=== PATIENT | male | born 1985 | race Two or more races ===

== ENCOUNTER 2024-05-05 04:22 | Inpatient (IN) | payer BC, OTHER ==
[~2024-05-05] VITALS: Ht 182.9 cm; Wt 90.9 kg
[2024-05-05] VITALS (8 sets, daily range): BP systolic 102–126; BP diastolic 78–89; PULSE 44–79; RESP 16–19; TEMP 97.6–98.4; O2SAT 95–99
[2024-05-05 04:53] LABS: Basophils # (auto) 0.1 10 ^3/uL (0-0.2); Basophils % (auto) 1.2 % (0.0-2.0); Eosinophils # (auto) 0.2 10 ^3/uL (0-0.8); Eosinophils % (auto) 3.6 % (0.0-7.0); Hematocrit 47.9 % (41.0-53.0); Hemoglobin 16.6 g/dL (13.5-17.5); Lymphocytes # (auto) 1.5 10 ^3/uL (0.4-5.4); Lymphocytes % (auto) 29.3 % (10.0-50.0); Mean Corpuscular Hemoglobin 31.6 pg (28.0-32.0); Mean Corpuscular Hgb Conc. 34.6 g/dL (32.0-36.0); Mean Corpuscular Volume 91.3 fL (80.0-100.0); Monocytes # (auto) 0.6 10 ^3/uL (0-1.3); Monocytes % (auto) 11.2 % (0.0-12.0); Neutrophils # (auto) 2.8 10 ^3/uL (1.6-8.6); Neutrophils % (auto) 54.7 % (37.0-80.0); Nucleated Red Blood Cells % 0.1 %; Platelet Count (auto) 254 10^3/uL (140-450); Red Blood Cells 5.25 10^6/uL (4.5-5.90); Red Cell Distribution Width 12.9 % (11.8-14.3)
[2024-05-05 04:59] LABS: INR 1.11 (0.9-1.15); Partial Thromboplastin Time 29.6 SEC (24.5-34.5); Prothrombin Time 11.7 sec (9.3-11.8)
[2024-05-05 05:02] LABS: Alanine Aminotransferase 28 U/L (7-40); Albumin 4.9 g/dL (3.2-4.8); Alkaline Phosphatase 104 U/L (46-116); Anion Gap 4 (5-15); Aspartate Aminotransferase 26 U/L (13-40); BUN/Creatinine Ratio 19.4 (10.0-20.0); Bilirubin, Total 0.5 mg/dL (0.2-1.0); Blood Urea Nitrogen 18 mg/dL (9-23); Carbon Dioxide 23 mmol/L (20-31); Chloride 111 mmol/L (98-107); Glucose 93 mg/dL (74-106); Potassium 4.1 mmol/L (3.5-5.1); Sodium 138 mmol/L (136-145); Total Protein 7.4 g/dL (5.7-8.2)
[2024-05-05] MEDS: LORazepam 2MG/ML-1ML VIAL IV ONE (07:24)
[2024-05-05] MEDS: ASPirin 325 MG TAB PO ONE (07:30)
[2024-05-05] MEDS: NITROGLYCERIN 0.4 MG SL TAB SL ONE (07:30)
[2024-05-05] MEDS ORDERED: MORPHINE SULFATE INJ 2 MG/ml SYRG IV PRN ×2 (10:30)
[2024-05-05] MEDS ORDERED: TEMAZEPAM 15 MG CAP PO PRN (10:30)
[2024-05-05] MEDS ORDERED: ONDANSETRON HCL 4 MG/2 ML VIAL IV PRN (10:30)
[2024-05-05] MEDS ORDERED: NITROGLYCERIN 0.4 MG SL TAB SL PRN ×2 (10:30)
[2024-05-05] MEDS ORDERED: DOCUSATE SOD 100 MG CAP PO PRN (10:30)
[2024-05-05] MEDS ORDERED: HYDROcodone-ACET 5/325MG TAB PO PRN (10:30)
[2024-05-05 11:49] LABS: Triglycerides 56 mg/dL (< 150)
[2024-05-05 11:50] LABS: Cholesterol 128 mg/dL (< 200); LDL Cholesterol 81 mg/dL (< 100)
[2024-05-05 11:51] LABS: HDL Cholesterol 45 mg/dL (40-59)
[2024-05-05] MEDS ORDERED: ACET-1881 PO (14:49)
[2024-05-05] MEDS: ACETAMINOPHEN 325 MG TAB PO PRN (21:29)
[2024-05-06 05:10] VITALS: BP 118/78; PULSE 54; RESP 19; TEMP 97.7; O2SAT 97
[2024-05-06 06:28] LABS: Alanine Aminotransferase 25 U/L (7-40); Albumin 4.8 g/dL (3.2-4.8); Alkaline Phosphatase 98 U/L (46-116); Anion Gap 5 (5-15); Aspartate Aminotransferase 20 U/L (13-40); BUN/Creatinine Ratio 11.7 (10.0-20.0); Blood Urea Nitrogen 12 mg/dL (9-23); Calcium 9.8 mg/dL (8.7-10.4); Carbon Dioxide 28 mmol/L (20-31); Chloride 108 mmol/L (98-107); Glucose 93 mg/dL (74-106); Sodium 141 mmol/L (136-145)
[2024-05-06 06:29] LABS: Basophils # (auto) 0.1 10 ^3/uL (0-0.2); Basophils % (auto) 1.3 % (0.0-2.0); Bilirubin, Total 0.7 mg/dL (0.2-1.0); Eosinophils # (auto) 0.3 10 ^3/uL (0-0.8); Eosinophils % (auto) 5.8 % (0.0-7.0); Hematocrit 47.7 % (41.0-53.0); Hemoglobin 16.7 g/dL (13.5-17.5); Lymphocytes # (auto) 1.3 10 ^3/uL (0.4-5.4); Mean Corpuscular Hemoglobin 31.8 pg (28.0-32.0); Mean Corpuscular Volume 91.1 fL (80.0-100.0); Monocytes # (auto) 0.6 10 ^3/uL (0-1.3); Monocytes % (auto) 12.9 % (0.0-12.0); Neutrophils # (auto) 2.2 10 ^3/uL (1.6-8.6); Platelet Count (auto) 239 10^3/uL (140-450); Red Blood Cells 5.23 10^6/uL (4.5-5.90); Red Cell Distribution Width 12.6 % (11.8-14.3); Total Protein 7.4 g/dL (5.7-8.2); White Blood Cell 4.4 10^3/uL (4.4-10.8)
[2024-05-06 08:00] VITALS: PULSE 50; PULSE 67; RESP 16; O2SAT 95
[2024-05-06 09:00] VITALS: BP 129/77; PULSE 67; RESP 16; TEMP 98.4; O2SAT 95
[2024-05-06] MEDS: ENOXAPARIN SOD 40 MG/0.4 ML SYRINGE SC SCH (10:00)
[2024-05-06] MEDS: PANTOPRAZOLE 40 MG TAB PO SCH (10:00)
[2024-05-06 13:00] VITALS: BP 128/71; PULSE 65; RESP 16; TEMP 98.5; O2SAT 97
[2024-05-06 16:12] VITALS: BP 125/72; PULSE 65; RESP 18; TEMP 98.6; O2SAT 98
== END 2024-05-06 17:00 | disposition home or self-care (01) | DRG 313 ==
LOC: ER 04:22 → TELE 10:29 → TELE-E-ADS 11:53
PROVIDERS: ADMIT Nurse Practitioner; ATTEND Nurse Practitioner
DX: R07.89 Other chest pain (principal); I10 Essential (primary) hypertension; Z81.8 Family history of other mental and behavioral disorders; Z82.49 Family history of ischemic heart disease and other diseases of the circulatory system; Z79.899 Other long term (current) drug therapy
CPT/HCPCS: 36415; 71045; 80053; 80061; 83735; 83880; 84484; 85025; 85610; 85730; 93005; G0378